=== PATIENT | male | born 1950 | race Caucasian/White ===

== ENCOUNTER 2016-12-30 16:28 | Emergency (ER) | payer OTHER ==
[~2016-12-30] VITALS: Ht 167.6 cm; Wt 81.5 kg
[~2016-12-30 16:28] MED LIST: ANTIVERT25 MG PO; ASPIR-LOW81 MG PO; CLOPIDOGREL75 MG PO; DAILY VITAMIN1 EAC4 PO; ENDOCET 5-3251 EACH PO; FLOMAX0.4 MG PO; IBUPROFEN200 M1 PO; KEFLEX500 MG PO; MECLIZINE HCL25 MG PO; MOTRIN800 MG PO; NAPROSYN500 MG PO; NEURONTIN300 MG PO; PRAVASTATIN SOD40 MG PO; PRILOSEC20 MG PO; PRILOSEC40 MG PO; PROSCAR5 MG PO; PROZAC20 MG PO; TYLENOL EXTRA500 MG PO
[2016-12-30] MEDS ORDERED: ULTRACET1 TABLET PO (18:43)
[2016-12-30] MEDS ORDERED: CIPRO500 MG PO (18:43)
[2016-12-30] MEDS ORDERED: MOTRIN600 MG PO (18:43)
[2016-12-30 19:04] VITALS: BP 126/80
== END 2016-12-30 19:04 | disposition home or self-care (01) ==
LOC: EME 16:28
PROC: 0HQGXZZ Repair Left Hand Skin, External Approach (ICD-10-PCS; principal; 2016-12-30)
DX: S61.112A Laceration without foreign body of left thumb with damage to nail, initial encounter (principal); W31.2XXA Contact with powered woodworking and forming machines, initial encounter; Y93.89 Activity, other specified; Z88.0 Allergy status to penicillin; Z88.5 Allergy status to narcotic agent
CPT/HCPCS: 73140; 99281; 99283; S0020

== ENCOUNTER 2017-01-02 11:06 | Emergency (ER) | payer OTHER ==
[~2017-01-02] VITALS: Ht 167.6 cm; Wt 82.0 kg
[~2017-01-02 11:06] MED LIST changes: +CIPRO500 MG PO; +MOTRIN600 MG PO; +ULTRACET1 TABLET PO
[2017-01-02 11:15] VITALS: BP 149/103
== END 2017-01-02 12:13 | disposition home or self-care (01) ==
LOC: EME 11:06
DX: S61.012D Laceration without foreign body of left thumb without damage to nail, subsequent encounter (principal); Z48.00 Encounter for change or removal of nonsurgical wound dressing; Z88.0 Allergy status to penicillin; Z88.6 Allergy status to analgesic agent
CPT/HCPCS: 99281; 99284

== ENCOUNTER 2017-08-17 09:08 | Emergency (ER) | payer OTHER ==
[~2017-08-17] VITALS: Ht 167.6 cm; Wt 79.2 kg
[2017-08-17 11:21] VITALS: BP 138/78
== END 2017-08-17 11:41 | disposition home or self-care (01) ==
LOC: TRA 09:08 → EME 09:08 → TRA 11:41
DX: S00.83XA Contusion of other part of head, initial encounter (principal); S50.812A Abrasion of left forearm, initial encounter; M54.2 Cervicalgia; V47.0XXA Car driver injured in collision with fixed or stationary object in nontraffic accident, initial encounter; Y92.411 Interstate highway as the place of occurrence of the external cause; Z79.02 Long term (current) use of antithrombotics/antiplatelets; K21.9 Gastro-esophageal reflux disease without esophagitis; Z88.5 Allergy status to narcotic agent; Z88.0 Allergy status to penicillin; F17.200 Nicotine dependence, unspecified, uncomplicated
CPT/HCPCS: 70450; 70480; 72125; 73090; 99281; 99284